=== PATIENT | female | born 1990 | race Caucasian/White ===

== ENCOUNTER 2020-08-02 12:09 | Emergency (ER) | payer OTHER, SELFPAY ==
[2020-08-02 13:21] VITALS: BP 148/79; PULSE 78; RESP 16; TEMP 37; BMI 26.9
--- NOTE | 2020-08-02 13:37 | US_ITS ---
EXAMINATION: ULTRASOUND PELVIS CLINICAL INFORMATION: Lower pelvic pain. COMPARISON: None TECHNIQUE: Transabdominal and transvaginal ultrasound the pelvis is performed pre- FINDINGS: The uterus is retroflexed measuring 6.3 cm in length, 8.9 cm in AP and 4.3 cm in transverse dimension. Endometrial thickness measures 0.6 cm the uterus is homogeneous echotexture. There is a small amount of free fluid in the cul-de-sac. Right ovary measures 4.9 x 4.6 x 3.2 cm and volume 37.8 mL. There is a small anechoic cyst with septation measuring 3.4 x 2.4 3.0 cm suggestive of hemorrhagic or complex cyst. Left ovary measures 3.0 x 2.3 x 2.2 cm and volume 8.0 mL. US/US transvaginal IMPRESSION: Unremarkable retroflexed uterus. Complex or hemorrhagic cyst right ovary. The left ovary is unremarkable. A small amount of free fluid in the cul-de-sac.
--- NOTE | 2020-08-02 13:37 | US_ITS ---
EXAMINATION: ULTRASOUND PELVIS CLINICAL INFORMATION: Lower pelvic pain. COMPARISON: None TECHNIQUE: Transabdominal and transvaginal ultrasound the pelvis is performed pre- FINDINGS: The uterus is retroflexed measuring 6.3 cm in length, 8.9 cm in AP and 4.3 cm in transverse dimension. Endometrial thickness measures 0.6 cm the uterus is homogeneous echotexture. There is a small amount of free fluid in the cul-de-sac. Right ovary measures 4.9 x 4.6 x 3.2 cm and volume 37.8 mL. There is a small anechoic cyst with septation measuring 3.4 x 2.4 3.0 cm suggestive of hemorrhagic or complex cyst. Left ovary measures 3.0 x 2.3 x 2.2 cm and volume 8.0 mL. US/US pelvic complete IMPRESSION: Unremarkable retroflexed uterus. Complex or hemorrhagic cyst right ovary. The left ovary is unremarkable. A small amount of free fluid in the cul-de-sac.
--- NOTE | 2020-08-02 13:41 | ED_ITS ---
HPI - Abdominal Pain General Chief Complaint: Abdominal Pain Stated Complaint: abd pain Time Seen by Provider: 08/02/20 13:37 Source: patient Mode of arrival: ambulatory Limitations: no limitations History of Present Illness MD elicited complaint: abdominal pain Onset (ago): day(s) (2) Pain Consistency: constant Location: suprapubic Severity: moderate Quality: cramping and aching Radiation: suprapubic Migration to: no migration Exacerbating factors: movement Relieving factors: nothing Associated symptoms: dysuria Related Data Previous Rx's Medication Instructions Recorded ibuprofen 600 mg PO Q6H PRN #30 tab 08/02/20 Allergies Allergy/AdvReac Type Severity Reaction Status Date / Time No Known Allergies Allergy Verified 08/02/20 13:22 Review of Systems Review of Systems Constitutional : No Weight loss, No Fever, No Chills ENT/Mouth : No sore throat, No Rhinorrhea Eyes: No Swelling, No Redness Cardiovascular : No Chest Pain, No SOB, NoEdema Respiratory : No Cough, No Sputum, No Wheezing Gastrointestinal : Positive Nausea, no Vomiting, no Diarrhea, positive abdominal Pain, No Hematochezia, No Melena Genitourinary : pos Dysuria, No Urinary Frequency, No Hematuria, No Urgency Musculoskeletal : No joint pain, No Myalgias, No Joint Swelling Skin : No Skin Lesions, No rash Neuro : No Weakness, No Numbness, No Dizziness, No Headache Psych : No Anxiety/Panic, No Depression Heme/Lymph: No Bruising, No Lymphadenopathy Endocrine : No Polyuria, No Polydipsia All other systems reviewed and are negative. Physical Exam Vital Signs: Vital Signs: Last Vital Signs Temp 98.6 F 08/02/20 13:21 Pulse 78 08/02/20 13:21 Resp 16 08/02/20 13:21 BP 148/79 H 08/02/20 13:21 Body Mass Index 26.9 Appearance: Alert. Oriented X3. No acute distress. Eyes: Pupils equal, round and reactive to light. ENT: Pharynx normal. Neck: Normal inspection. Neck supple. CVS: Normal heart rate and rhythm. Pulses normal. Respiratory: No respiratory distress. Breath sounds normal. Abdomen: Soft and mild suprapubic tenderness, no rebound or guarding. Skin: Skin warm and dry. Normal skin color. Normal skin turgor. Extremities: No lower extremity edema. No calf ttp Neuro: Oriented X 3. No motor deficit. No sensory deficit. Course Course Course Narrative: negative UA, US hemorrhagic cyst likely cause of pain, stable for DC, patient already on OCPs MDM - Abdominal Pain MDM Narrative Medical decision making narrative: 30 yo female with lower abdominal pain and dysuria, no concern for STI, no discrete RLQ ttp will start with US to evaluate ovaries and UA for UTI, dispo per results and findings. Lab Data Labs: Lab Results 08/02/20 Range/Units 14:19 Urine Color STRAW Urine Appearance CLEAR Urine pH 6.0 (5.0-8.0) Ur Specific [place] <= 1.005 (1.005-1.025) Urine Protein NEG (NEG-TRACE) MG/DL Urine Glucose (UA) NEG (NEG) MG/DL Urine Ketones NEG (NEG) MG/DL Urine Blood NEG (NEG) Urine Nitrite NEG (NEG) Ur Leukocyte Esterase NEG (NEG) Urine Test NEGATIVE (NEGATIVE) Discharge Plan Discharge Clinical Impression: Ovarian cyst Patient Disposition: Home, Self-Care Instructions: Ovarian Cyst (ED) Additional Instructions: return to ED for any worsening symptoms or concerns Right ovary measures 4.9 x 4.6 x 3.2 cm and volume 37.8 mL. There is a small anechoic cyst with septation measuring 3.4 x 2.4 3.0 cm suggestive of hemorrhagic or complex cyst. YOU NEED TO FOLLOW UP WITH YOUR OB IN 4 WEEKS FOR REPEAT US Prescriptions: New ibuprofen 600 mg tablet 600 mg PO Q6H PRN (Reason: pain) Qty: 30 RF: 0 PMFSH Past Medical History Attestation statement: The following information was validated with the patient. Medical History (Updated 08/02/20 @ 15:17 by Evy Murphy DO) No known health problems Surgical History (Updated 08/02/20 @ 14:05 by Evy Murphy DO) H/O section Social History Social History (Updated 08/02/20 @ 14:05 by Evy Murphy DO) Smoking Status: Never smoker Use of substances other than those prescribed or required for medical reasons: No Advance Directives: No Advance Directives Information Provided: No
[2020-08-02 14:29] LABS: Glucose Urine UA NEG (NEG); Leukocyte Esterase Urine NEG (NEG); Nitrite Urine NEG (NEG); Specific Gravity - Urine <= 1.005 (1.005-1.025); Urine Blood NEG (NEG); Urine Ketones NEG (NEG); Urine Protein NEG (NEG-TRACE)
[2020-08-02 14:34] LABS: Appearance Urine CLEAR; Color Urine STRAW; UPreg QC Valid YES; Urine Pregnancy NEGATIVE (NEGATIVE)
== END 2020-08-02 15:21 | disposition home or self-care (01) ==
PROVIDERS: Emergency Provider Emergency Medicine; PCP Internal Medicine
DX: N83.201 Unspecified ovarian cyst, right side (principal); R10.30 Lower abdominal pain, unspecified; R30.0 Dysuria
CPT/HCPCS: 76830; 76856; 81003; 81025; 99283; 99284

== ENCOUNTER 2020-08-08 11:55 | Outpatient (REF) | payer OTHER, SELFPAY ==
[2020-08-08 12:17] LABS: COVID-19 Test Negative (Negative)
== END 2020-08-08 11:56 | disposition home or self-care (01) ==
LOC: HO.EMPCOV 11:55
PROVIDERS: Visit Provider Internal Medicine
DX: Z20.828 Contact with and (suspected) exposure to other viral communicable diseases (principal)
CPT/HCPCS: 87635; C9803

== ENCOUNTER 2020-08-30 08:18 | Outpatient (REF) | payer OTHER, SELFPAY ==
[2020-08-30 08:38] LABS: COVID-19 Test Positive (Negative)
== END 2020-08-30 08:19 | disposition home or self-care (01) ==
LOC: HO.EMPCOV 08:18
PROVIDERS: Visit Provider Internal Medicine
DX: Z20.822 Contact with and (suspected) exposure to COVID-19 (principal)
CPT/HCPCS: 36415; 87635; C9803

== ENCOUNTER 2020-11-21 08:42 | Outpatient (REF) | payer OTHER, SELFPAY ==
[2020-11-21 09:32] LABS: COVID-19 Test Negative (Negative)
== END 2020-11-21 08:43 | disposition home or self-care (01) ==
LOC: HO.EMPCOV 08:42
PROVIDERS: Visit Provider Internal Medicine
DX: Z20.822 Contact with and (suspected) exposure to COVID-19 (principal)
CPT/HCPCS: 36415; 87635; C9803